=== PATIENT | male | born 1955 | race Caucasian/White ===

== ENCOUNTER → 2020-06-12 10:01 | Outpatient (CLI) | payer OTHER, MEDICARE, SELFPAY ==
--- NOTE | 2020-06-12 10:15 | XR_ITS ---
PROCEDURE: XR LUMBAR SPINE MIN 4V CLINICAL INDICATION: LUMBAR RADICULOPATHY COMPARISON: No exams were available for comparison FINDINGS: There is normal curvature and alignment. All lumbar vertebrae appear there is no pars defect. The SI joints are normal. There are mild hypertrophic facet changes at the L4-5 and L5-S1 levels. IMPRESSION: Mild degenerate change and hypertrophic facet changes as described and if there is significant radiculopathy of follow-up CT scan lumbar spine may be of help Dictated by: Dr. Juan Francisco Ulloa MD 06/12/2020 12:43 Dr. Juan Francisco Ulloa MD in [place] 06/12/2020 12:43
--- NOTE | 2020-06-12 10:15 | XR_ITS ---
PROCEDURE: XR HIP LT 2-3V W/PELVIS CLINICAL INDICATION: LT HIP PAIN COMPARISON: No exams were available for comparison FINDINGS: No fracture or dislocation is evident. No significant degenerative change. No lytic or blastic change. Unremarkable soft tissues. The SI joints and symphysis pubis appear normal. IMPRESSION: No acute findings. Dictated by: Dr. Juan Francisco Ulloa MD 06/12/2020 12:44 Dr. Juan Francisco Ulloa MD in [place] 06/12/2020 12:44
== END ==
PROVIDERS: PCP Family Medicine; Visit Provider Family Medicine
DX: M54.16 Radiculopathy, lumbar region (principal); M25.552 Pain in left hip
CPT/HCPCS: 72110; 73502

== ENCOUNTER → 2020-07-26 08:47 | Outpatient (CLI) | payer OTHER, MEDICARE, SELFPAY ==
--- NOTE | 2020-07-26 08:53 | MR_ITS ---
PROCEDURE: MR LUMBAR SPINE WO CON CLINICAL INDICATION: LBP AND LEFT LEG PAIN The LOW BACK PAIN AND LEFT LEG PAIN X1.5 MONTHS. PRIOR SURGERY 2009, PRIR XRAY 06-12-20 COMPARISON: CR XR LUMBAR SPINE MIN 4V from 06/12/2020 TECHNIQUE: Standard multiplanar multiecho sequences are performed without contrast. 3-D MIP and myelographic images are also rendered and reviewed FINDINGS: There is normal alignment. The spinal cord ends at the L1 level. T12-L1: Unremarkable. L1-L2: Unremarkable. L2-L3: Mild concentric bulging disc with facet and ligamentum hypertrophy resulting in mild right and [id number] left lateral recess narrowing and mild foraminal narrowing. L3-L4: Facet and ligamentum hypertrophy with mild bilateral lateral recess and foraminal narrowing. L4-5: Degenerative disc disease with a bulging disc and facet and ligamentum hypertrophy. There is some heterogeneous signal intensity along the left aspect of the disc at this region. Postsurgical changes are present on the left with increase fat just to the left of the spinous process with possible small laminotomy defect. There is severe left-sided foraminal narrowing from an area of decreased T2 and T1 signal along the posterior aspect of the foramen impinging upon the exiting in L4 nerve root. This may be due to facet hypertrophic change/spurring. Consider repeating exam without and with contrast for better characterisation. There does appear to be a left protrusion or disc osteophyte complex at this region as seen on the sagittal images. None the less there is moderate to severe left-sided foraminal narrowing with some impingement upon the exiting L4 nerve root. Mild right foraminal narrowing also noted. L5-S1: Mild degenerative disc disease with minimal bulging disc along with facet ligamentum hypertrophy with mild right and moderate left-sided foraminal narrowing. IMPRESSION: 1. L2-L3: Mild concentric bulging disc with facet and ligamentum hypertrophy resulting in mild right and [id number] left lateral recess narrowing and mild foraminal narrowing. 2. L3-L4: Facet and ligamentum hypertrophy with mild bilateral lateral recess and foraminal narrowing. 3. L4-5: Degenerative disc disease with a bulging disc and facet and ligamentum hypertrophy. There is some heterogeneous signal intensity along the left aspect of the disc at this region. Postsurgical changes are present on the left with increase fat just to the left of the spinous process with possible small laminotomy defect. There is severe left-sided foraminal narrowing from an area of decreased T2 and T1 signal along the posterior aspect of the foramen impinging upon the exiting in L4 nerve root. This may be due to facet hypertrophic change/spurring. Consider repeating exam without and with contrast for better characterization. There does appear to be a left broad-based foraminal disc protrusion or disc osteophyte complex at this region as seen on the sagittal images. None the less there is moderate to severe left-sided foraminal narrowing with some impingement upon the exiting L4 nerve root. Mild right foraminal narrowing also noted. 4. L5-S1: Mild degenerative disc disease with minimal bulging disc along with facet ligamentum hypertrophy with mild right and moderate left-sided foraminal narrowing. Dictated by: Sorin Rangel MD 07/27/2020 11:18 Sorin Rangel MD in [place] 07/27/2020 11:18
== END ==
PROVIDERS: PCP Family Medicine; Visit Provider Family Medicine
DX: M54.16 Radiculopathy, lumbar region (principal)
CPT/HCPCS: 72148; 76376

== ENCOUNTER → 2023-04-09 09:34 | Outpatient (CLI) | payer OTHER, MEDICARE, SELFPAY ==
--- NOTE | 2023-04-09 09:57 | ECG_ITS ---
APPROVED REPORT Exam: Resting ECG HR:70 bpm ECG Measurements Heart Rate 70 AXES TN 166 P 35 QRSd 103 QRS 166 QT 342 T 60 QTc 363 Conclusion SINUS RHYTHM POSSIBLE RIGHT VENTRICULAR HYPERTROPHY [SOME/ALL OF: PROMINENT R IN V1, LATE TRANSITION, RAD, FELIPA, SSS] ABNORMAL ECG UNCONFIRMED REPORT Electronically signed by : Juno Donato MD 04/09/2023 18:31:18
[2023-04-09 10:18] LABS: Basophils % 0.4 % (0.1-2.0); Eosinophils # 0.3 K/mm3 (0.0-0.4); Eosinophils % 6.1 % (0.1-12.0); Hematocrit 45.8 % (42.0-52.0); Hemoglobin 14.8 g/dL (14.1-18.0); Lymphocytes # 0.8 K/mm3 (0.7-4.5); Lymphocytes % 17.5 % (10-50); Mean Corpuscular HGB Conc 32.3 g/dL (31.8-35.4); Mean Corpuscular Hemoglobin 30.7 pg (27.0-31.2); Monocytes # 0.4 K/mm3 (0.1-1.0); Monocytes % 9.5 % (1.7-9.3); Neutrophils # 3.1 K/mm3 (1.8-7.8); Neutrophils % 66.5 % (37.0-80.0); Platelet Count 222 K/mm3 (142-424); Red Blood Count 4.82 M/mm3 (4.60-6.20); White Blood Count 4.6 K/mm3 (4.8-10.8)
[2023-04-09 10:58] LABS: Alanine Aminotransferase 25 U/L (12-78); Albumin Level 3.9 g/dl (3.5-5.0); Albumin/Globulin Ratio 1.4 (1.1-1.8); Alkaline Phosphatase 80 U/L (38-126); Anion Gap 9.9 mEq/L (5-15); Aspartate Amino Transferase 30 U/L (17-59); Bilirubin,Total 0.2 mg/dl (0.2-1.3); Blood Urea Nitrogen 21 mg/dl (9-20); Calcium 9.4 mg/dl (8.4-10.2); Carbon Dioxide 32 mmol/L (22.0-30.0); Chloride 101 mmol/L (98-107); Estimated Glomerular Filt Rate 84 ml/min (>60); GFR (African American) 101 ML/MIN (>60); Globulin 2.7 g/dL (1.3-3.2); Glucose 106 mg/dl (74-100); Potassium 4.9 mmoL/L (3.5-5.1); Sodium 138 mmol/L (136-145); Total Protein,Serum 6.6 g/dl (6.3-8.2)
== END ==
PROVIDERS: PCP Family Medicine; Visit Provider Family Medicine
DX: Z01.818 Encounter for other preprocedural examination (principal); H26.9 Unspecified cataract
CPT/HCPCS: 36415; 80053; 85025; 93005

== ENCOUNTER 2024-10-11 09:43 | Outpatient (CLI) | payer OTHER, MEDICARE, SELFPAY ==
--- NOTE | 2024-10-11 09:48 | XR_ITS ---
FINAL REPORT CLINICAL HISTORY: PAIN..fall FINDINGS: RIGHT SHOULDER Three views demonstrate no acute fracture or dislocation. The visualized joint spaces are normally aligned. There are mild degenerative changes of the acromioclavicular and glenohumeral joints. The soft tissues are unremarkable. IMPRESSION: No acute process. Reviewed, Interpreted and Dictated by Marisa Schmid MD Transcribed by Dayana Eason Authenticated and [facility]
== END 2024-10-11 23:59 | disposition home or self-care (01) ==
LOC: RAD 09:44
PROVIDERS: PCP Family Medicine; Visit Provider Family Medicine
DX: M25.511 Pain in right shoulder (principal)
CPT/HCPCS: 73030